=== PATIENT | male | born 1960 | race Caucasian/White ===

== ENCOUNTER 2019-03-08 05:32 | Day surgery (SDC) | payer BC ==
[~2019-03-08] VITALS: Ht 182.9 cm; Wt 80.7 kg
--- NOTE | ~2019-03-08 | H ---
[facility] [place] [address] HISTORY AND PHYSICAL Name: GAGE ORR Room #: 150-3 [facility] M.R.#: [id number] Admission: 03/08/19 ������������������ Attend Phys: Moi Rdz MD Discharge: ������������������ Date of : 62 Report #: [id number] THIS REPORT FOR: //name// CC: Moi Trevino MD PREOPERATIVE DIAGNOSIS: Bilateral inguinal hernia. HISTORY OF PRESENT ILLNESS: The patient is a 58-year-old who has noticed a protrusion in the right groin. Recently, it has been achy. The protrusion usually goes away when he lies down. No history of nausea or vomiting. He thinks he has had the bulge for about a month. The patient does not strain with bowel movement or urination. Occasionally, he will lift heavy more about 50 pounds. Otherwise, he does not do much lifting. No chronic cough or sneezing. He did have a colonoscopy that was unremarkable. The patient thinks his father had hernia. 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 He may have had a hernia repair back when he was 16 years old. 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 No history with prolapse. He has a history of left leg cellulitis. MEDICATIONS: None. ALLERGIES: None. FAMILY HISTORY: Diabetes both sides. SOCIAL HISTORY: The patient works in computers. He does not smoke. Drinks about 3 times a week. REVIEW OF SYSTEMS: Mitral valve prolapse. No chest pain, shortness of breath or palpitation. PHYSICAL EXAMINATION: GENERAL: The patient is a well-nourished male in no acute distress. HEENT: Pupils react to light. Extraocular muscles are intact. NECK: Soft and supple, no masses, no JVD. LUNGS: Clear to auscultation. HEART: Regular rate and rhythm. No murmur or gallop. ABDOMEN: Soft, nondistended, nontender. The patient does have a right inguinal hernia, also a left inguinal hernia. Hernia is detected. Both are reducible. Testicles are normal, descended. No masses. The patient has had a right above-knee amputation. [address] [address] HISTORY AND PHYSICAL Name: GAGE ORR Room #: 150-3 [facility]..#: [id number] Admission: 03/08/19 ������������������ Attend Phys: Moi Rdz MD Discharge: ������������������ Date of : 62 Report #: [id number] IMPRESSION: The patient is a 58-year-old with symptomatic right inguinal hernia. He is found to have a left inguinal hernia also. The patient is recommended to undergo repair of bilateral inguinal hernia. Procedure of laparoscopic properitoneal approach was discussed. The patient understands the surgery and the procedure. He wishes to proceed. Use of mesh was discussed. Risk of bleeding, infection, mesh infection was discussed. ��������������������������������������������� ���������������������������������������� By: ��������������������������������������������� 0852 3 Moi Rdz MD /franca
--- NOTE | ~2019-03-08 | O ---
[facility] [place] [address] [place] [address] OPERATIVE REPORT Name: GAGE ORR Room #: DEP [facility] M.R.#: [id number] Admission: 03/08/19 ������������������ Attend Phys: Moi Rdz MD Discharge: 03/08/19 ������������������ Date of : 62 Report #: [id number] THIS REPORT FOR: //name// CC: Moi Molinabrandy DATE OF SERVICE: 03/08/2019 PREOPERATIVE DIAGNOSIS: Bilateral inguinal hernia, right large inguinal hernia, left recurrent hernia. POSTOPERATIVE DIAGNOSIS: Bilateral inguinal hernia, right large indirect hernia, and left recurrent hernia. PROCEDURES PERFORMED: Laparoscopic bilateral hernia repair with mesh. ANESTHESIA: General. SURGEON: Moi Rdz MD COMPLICATIONS: None. BLOOD LOSS: 5 mL. DESCRIPTION OF PROCEDURE: With the patient under general anesthesia, IV antibiotic was administered. Stone catheter was placed. Abdomen was prepped and draped in sterile fashion. Timeout was performed. 0.25% Marcaine was used to anesthetize the skin adjacent to the umbilicus on the right side. A 2 cm incision was made on the right side of the umbilicus transversely. Fascia was identified. The anterior rectus fascia was opened. Muscle was spread. Posterior sheath was then palpated. The space between the rectus muscle and the posterior rectus sheath was dissected inferiorly. An 11 mm balloon trocar was placed through the space. The camera was used to push the properitoneal space open. Once I was able to see inferior to the trocar, a 5 mm trocar was placed about an inch and a half below the umbilicus. This was placed in the properitoneal space under visualization. Dissection was then carried out, freeing the properitoneal space with cautery and then also blunt dissection. Dissection was carried down inferiorly, freeing the entire properitoneal space. The lateral dissection was then performed. The inferior epigastric vessels were identified. On the right, the patient's indirect hernia sac was visualized. The hernia sac was brought down posteriorly off the wall and then a second 5 mm trocar was placed in the lateral wall on the right side. Dissection was carried out on the left side. The left inferior epigastric vessel was used for our landmark. The patient did have a peritoneum that was up along the cord into the internal ring. This was free from the cord structure and reduced. There is a lipoma of the cord that was also identified on the left side and brought back [address] [address] OPERATIVE REPORT Name: GAGE ORR Fito Room #: DEP [facility]..#: [id number] Admission: 03/08/19 ������������������ Attend Phys: Moi Rdz MD Discharge: 03/08/19 ������������������ Date of : 62 Report #: [id number] into the properitoneal space. No direct defect identified. On the right side, there was no direct defect. A large indirect hernia sac was found. The hernia sac was isolated free from the underlying cord. The hernia sac was actually fairly thick and quite long and there was area that was scarred down. The entire hernia sac was reduced, brought back in the properitoneal space. I went ahead and ligated the sac with 0 PDS on an Endoloop. There was no content in the hernia sac. Cord structure was isolated. The vas identified. Large left-sided 3DMax lightweight was then placed through the balloon trocar site. This was then positioned to cover the internal ring well. This was then tacked to the lateral wall and then inferiorly to the Derrek's ligament over the pubic bone and then superomedially to the rectus muscle. A right-sided mesh 3D lightweight was used for the right inguinal hernia repair. This was positioned as described for the left, covering the internal ring well. I did shift the mesh over more laterally and also posterior. The hernia sac that was brought out on the right side was excluded and located medial to the mesh. The mesh was tacked to the wall laterally with SorbaFix and then Derrek's ligament inferiorly over the pubic bone and then superomedially to the rectus muscle. Both mesh seated well. The CO2 was discontinued. The properitoneal space was allowed to collapse. Trocars were removed. The anterior fascia at the umbilical site that was opened was closed with 0 Vicryl [id number] and then a single interrupted 0 Vicryl. Skin was irrigated, closed with 5-0 PDS. Steri-Strip, Band-Aids applied. The patient tolerated the procedure well. ��������������������������������������������� ���������������������������������������� By: ��������������������������������������������� [id number] Moi Rdz MD /nt
[~2019-03-08 05:32] MED LIST: KEFLEX500 MG PO; NOHOMEMEDICATIONS
[2019-03-08 12:42] VITALS: BP 141/78
[2019-03-08] MEDS ORDERED: NORCO 5-325 TA1 EACH PO (16:39)
[2019-03-08 17:04] VITALS: BP 141/78
== END 2019-03-08 18:25 | disposition home or self-care (01) ==
LOC: OR 05:32 → TBA 05:32 → OR 10:50
DX: K40.90 Unilateral inguinal hernia, without obstruction or gangrene, not specified as recurrent (principal); K40.91 Unilateral inguinal hernia, without obstruction or gangrene, recurrent; D17.6 Benign lipomatous neoplasm of spermatic cord; Z98.890 Other specified postprocedural states; Z79.899 Other long term (current) drug therapy; Z89.612 Acquired absence of left leg above knee; Z79.891 Long term (current) use of opiate analgesic
CPT/HCPCS: 50010; 50101; 50411; 50455; 50507; 50555; 50848; 51297; 53065; 53307; 56462; 56525; 56526; 62110; 62900; 70005

== ENCOUNTER → 2020-11-20 | Outpatient (CLI) | payer OTHER ==
[~2020-11-20] MED LIST changes: +NORCO 5-325 TA1 EACH PO
== END ==
LOC: SJCVCIMAG 08:54
PROVIDERS: ATTEND Internal Medicine
DX: I34.1 Nonrheumatic mitral (valve) prolapse (principal); I34.0 Nonrheumatic mitral (valve) insufficiency; I51.7 Cardiomegaly

== ENCOUNTER 2020-12-17 19:22 | Emergency (ER) | payer OTHER ==
[~2020-12-17] VITALS: Ht 182.9 cm; Wt 79.4 kg
--- NOTE | ~2020-12-17 | EMS ---
[address] [address] EMS Patient Care Report Name: GAGE ORR Room #: REG JATIN Collier#: [id number] Admission: 12/17/20 Attend Phys: Discharge: Date of : 62 Report #: [id number] THIS REPORT FOR: //name// Report Transmitted: 12/17/2020 19:30 EMS Care Summary [facility] MED-ACT Incident [id number] @ 12/17/2020 18:48 Incident Location [address] [place] [address] Patient GAGE ORR Male, 60 Years 1960 Patient Address [address] [place] [address] Patient History Mitral Valve Prolapse, Patient Allergies No known allergies, Patient Medications None Reported, Chief Complaint shoulder and hip pain Disposition Transported No Lights/[place] Dispatch Reason Falls Transported To [facility] Narrative This crew arrives to find the pt sitting upright on a chair inside the kitchen of his home. [facility] and his family are on scene. He appears alert and in no obvious distress. The pt states that a short time earlier he was at the top of a flight of [address] [address] EMS Patient Care Report Name: GAGE ORR Room #: REG JATIN Collier#: [id number] Admission: 12/17/20 Attend Phys: Discharge: Date of : 62 Report #: [id number] basement stairs when he believes he tripped and fell, landing backwards on his right side and continuing to the bottom. He denies losing consciousness or striking his head in the event. He was assisted up to the kitchen by his son and 911 was called. At contact the pt reports pain in his right shoulder and right hip. His right arm is noted to be hanging somewhat limply, there is deformity at the shoulder, and he has limited mobility but full sensation. The pt is an amputee to the right leg above the knee. He also reports pain across his back. No further acute pain or injury reported. The pt reports his arm to be most comfortable left in its current position and declines IV pain medicine. He assisted to the cot inside of his garage without incident, secured in a position of relative comfort, and moved to the ambulance. No change in condition en route. The pt is moved to ER bed 8 without incident, report and care given to Dr Fatima. Initial Vitals @19:09P: 87,BP: 158/86,Pain: 5/10,Temp: 97.2F, @19:16P: 76,R: 20,BP: 147/53,SpO2: 96, @PTAP: 75,R: 22,BP: 101/64,GCS: 15,SpO2: 97,Revised Trauma: 12, Assessments @19:14MENTAL:Person Oriented,Time Oriented,Event Oriented,Place Oriented,SKIN:HEENT:Eyes: Left Pupil: 4-mm,Eyes: Right Pupil: 4-mm,Head/Face: No Abnormalities,LUNG SOUNDS:General: No Abnormalities,ABDOMEN:General: No Abnormalities,PELVIS//GI:EXTREMITIES:Right Leg: CONNER,Right Arm: DIS,Right Arm: CONNER,PULSE:NEURO: Impression Injury of Shoulder or Upper Arm Procedures @19:10Surgical Mask on PatientResponse: Unchanged Timeline LINE CONTROLLER,BP: 101/64 M,PULSE: 75,RR: 22 R,SPO2: 97 Ox,ETCO2: ,BG: ,PAIN: ,GCS: 15, 18:47,Call Received 18:47,Psap Call 18:48,Dispatched 18:49,En Route 18:59,On Scene 19:02,At Patient 19:09,BP: 158/86 M,PULSE: 87,RR: R,SPO2: Ox,ETCO2: ,BG: ,PAIN: 5,GCS: , 19:10,Surgical Mask on Patient,Response: Unchanged 19:10,Depart Scene 19:16,BP: 147/53 M,PULSE: 76,RR: 20 R,SPO2: 96 Ox,ETCO2: ,BG: ,PAIN: ,GCS: , 19:18,At Destination [facility] [address] [place] [address] EMS Patient Care Report Name: GAGE ORR Room #: BÁRBARA Collier#: [id number] Admission: 12/17/20 Attend Phys: Discharge: Date of : 62 Report #: [id number] 19:30,Call Closed Disclaimer [email or web address] Copyright 2020 [employer] This EMS Care Summary contains data elements from the applicable legal record (which may be displayed differently). It is designed to provide pertinent information for the following purposes: continuity of care, clinical quality, and state data reporting. The complete legal record is available to ED staff and administrators of the receiving hospital in [employer]'s Patient Tracker. All data is provided "as is."
[2020-12-17] MEDS ORDERED: NORCO 10-325 T1 EACH PO (21:51)
[2020-12-17 22:42] VITALS: BP 115/52
== END 2020-12-17 22:44 | disposition home or self-care (01) ==
LOC: ER 19:22
DX: S42.141A Displaced fracture of glenoid cavity of scapula, right shoulder, initial encounter for closed fracture (principal); Z91.018 Allergy to other foods; W10.8XXA Fall (on) (from) other stairs and steps, initial encounter; Y93.89 Activity, other specified; Y92.89 Other specified places as the place of occurrence of the external cause; Y99.8 Other external cause status